=== PATIENT | male | born 1990 | race Caucasian/White ===

== ENCOUNTER 2017-01-15 21:29 | Emergency (ER) | payer SELFPAY ==
[2017-01-16] MEDS: HYDROCODONE/APAP (5/325) TAB PO (01:20)
[2017-01-16] MEDS: DIPHTH/TET/ACEL PERTUSS (ADULT) 0.5 ML VIAL IM* (01:31)
== END 2017-01-16 02:45 | disposition home or self-care (01) ==
LOC: FTE 21:29
DX: S62.616A Displaced fracture of proximal phalanx of right little finger, initial encounter for closed fracture (principal); S19.9XXA Unspecified injury of neck, initial encounter; S00.81XA Abrasion of other part of head, initial encounter; S60.512A Abrasion of left hand, initial encounter; R51 Headache; V00.131A Fall from skateboard, initial encounter; Y92.9 Unspecified place or not applicable
CPT/HCPCS: 29125; 70450; 70486; 72125; 73130-RT; 90471; 90715; 99285-25